=== PATIENT | male | born 1975 | race African-American/Black ===

== ENCOUNTER → 2024-05-06 | Emergency (ER) | payer OTHER ==
[~2024-05-06] VITALS: Ht 180.3 cm; Wt 72.7 kg
[~2024-05-06] MED LIST: IOHEXOL 350 MG/ML 100 ML VIAL ONE; SODIUM CHLORIDE 0.9% 100 ML ONE; VARE1TAB25 PO
[2024-05-06 08:18] VITALS: TEMP 98.6
[2024-05-06 08:46] LABS: BASOPHILS % (AUTO) 0.2 % (0.0-2.0); EOSINOPHILS % (AUTO) 0.1 % (1.0-6.0); HEMATOCRIT 49.8 % (41-53); HEMOGLOBIN 16.5 g/dL (13.5-17.5); LYMPHOCYTES # (AUTO) 1.3 K/uL (1.0-4.8); LYMPHOCYTES % (AUTO) 11.5 % (22.0-44.0); MEAN CORPUSCULAR HEMOGLOBIN 31.3 pg (26.0-34.0); MEAN CORPUSCULAR HGB CONC 33.2 G/dL (31.0-37.0); MEAN CORPUSCULAR VOLUME 94 fL (80-100); MONOCYTES # (AUTO) 0.7 K/uL (0.1-1.0); MONOCYTES % (AUTO) 5.7 % (2.0-9.0); NEUTROPHILS # (AUTO) 9.7 K/uL (1.8-7.7); NEUTROPHILS % (AUTO) 82.5 % (40.0-70.0); PLATELET COUNT (AUTO) 271 K/uL (150-450); RED BLOOD CELL COUNT(AUTO) 5.28 MIL/uL (4.50-5.90); RED CELL DISTRIBUTION WIDTH 13.5 % (11.5-14.5); WHITE BLOOD COUNT (AUTO) 11.7 K/uL (4.5-11.0)
[2024-05-06 08:55] LABS: ANION GAP 11 mmol/L (8-16); CALCIUM, TOTAL 9.9 mg/dL (8.8-10.5); CARBON DIOXIDE 28 mmol/L (22-29); CHLORIDE 98 mmol/L (98-107); CREATININE 0.94 mg/dL (0.60-1.30); GLOMERULAR FILTR. RATE CALC > 60 mL/min (>60); GLUCOSE,RANDOM 104 mg/dL (70-110); SODIUM SERUM 137 mmol/L (136-145); UREA NITROGEN, BLOOD 8 mg/dL (7-18)
[2024-05-06 08:56] LABS: LIPASE 75 U/L (16-77)
[2024-05-06 09:43] LABS: APPEARANCE,URINE HAZY (CLEAR); BILIRUBIN,URINE NEGATIVE (NEGATIVE); COLOR,URINE YELLOW (YELLOW); GLUCOSE, URINE (UA) NEGATIVE (NEGATIVE); KETONES,URINE =>150 mg/dL (NEGATIVE); LEUKOCYTE ESTERASE ,URINE MODERATE (NEGATIVE); NITRATE,URINE NEGATIVE (NEGATIVE); OCCULT BLOOD,URINE TRACE (NEGATIVE); PROTEIN,URINE 100-200,SEE CONFIRM mg/dL (NEGATIVE); SPECIFIC GRAVITIY, URINE 1.038 (1.003-1.030)
[2024-05-06] MEDS: ONDANSETRON HCL 4 MG/2 ML VIAL IVP ONE ×2 (09:44→10:40)
[2024-05-06] MEDS: IOHEXOL 9 MG/ML 500 ML BOTTLE PO ONE (09:44)
[2024-05-06] MEDS: SODIUM CHLORIDE 0.9% 2,000 ML IV ONE (09:44)
[2024-05-06 09:53] LABS: BACTERIA,URINE None Seen /HPF (None Seen); RBC,URINE 0-2 /HPF (0-2); SQUAMOUS EPITHELIAL CELL,UR Few /LPF (None Seen); SULFOSALICYLIC ACID,URINE Trace (Negative)
[2024-05-06 10:02] LABS: TROPONIN I-HIGH SENSITIVITY 5 ng/L (<76)
[2024-05-06] MEDS: SODIUM CHLORIDE 0.9% 1,000 ML IV ONE ×2 (12:26→14:18)
[2024-05-06] MEDS: CefTRIAXone 1 GM/DEXTROSE 50 ML IV ONE (12:26)
[2024-05-06] MEDS: POTASSIUM CHL 10 MEQ/WATER 50 ML IV ONE (12:27)
[2024-05-06] MEDS: METOCLOPRAMIDE HCL 5 MG/ML 2 ML VIAL IVP ONE (13:26)
[2024-05-06] MEDS: HYDROmorphone HCL 2 MG/ML SYRINGE IVP ONE (14:57)
[2024-05-06 19:30] VITALS: BP 119/67; PULSE 65; RESP 18
[2024-05-06] MEDS: ONDANSETRON HCL 4 MG TABLET PO ONE (19:34)
== END | disposition still patient (30) ==
LOC: EMS 08:26
DX: E87.6 Hypokalemia (principal); R19.00 Intra-abdominal and pelvic swelling, mass and lump, unspecified site; R82.81 Pyuria; F12.90 Cannabis use, unspecified, uncomplicated; Z87.891 Personal history of nicotine dependence; Z91.040 Latex allergy status
CPT/HCPCS: 99285; 74177; 96365; 96375; 96361; 71045; 80048; 81001; 83690; 84484; 85025; 36415; 87086; 87186; 93005; 96376; Q9967 ×2; J0696; J1170; J2765; J2405; Q0162; J3480; J7030; J7050; 81002

== ENCOUNTER 2024-05-22 20:12 | Emergency (ER) | payer OTHER ==
[~2024-05-22] VITALS: Ht 177.8 cm; Wt 68.1 kg
[~2024-05-22 20:12] MED LIST changes: -IOHEXOL 350 MG/ML 100 ML VIAL ONE; -SODIUM CHLORIDE 0.9% 100 ML ONE
[2024-05-22 20:31] VITALS: TEMP 97.6
[2024-05-22 22:51] LABS: BASOPHILS % (AUTO) 0.5 % (0.0-2.0); EOSINOPHILS % (AUTO) 0.3 % (1.0-6.0); HEMATOCRIT 46.1 % (41-53); HEMOGLOBIN 15.3 g/dL (13.5-17.5); LYMPHOCYTES # (AUTO) 1.7 K/uL (1.0-4.8); LYMPHOCYTES % (AUTO) 15.3 % (22.0-44.0); MEAN CORPUSCULAR HEMOGLOBIN 31.3 pg (26.0-34.0); MEAN CORPUSCULAR HGB CONC 33.2 G/dL (31.0-37.0); MEAN CORPUSCULAR VOLUME 94 fL (80-100); MONOCYTES # (AUTO) 0.7 K/uL (0.1-1.0); MONOCYTES % (AUTO) 5.8 % (2.0-9.0); NEUTROPHILS # (AUTO) 8.8 K/uL (1.8-7.7); NEUTROPHILS % (AUTO) 78.1 % (40.0-70.0); PLATELET COUNT (AUTO) 337 K/uL (150-450); RED CELL DISTRIBUTION WIDTH 13.3 % (11.5-14.5); WHITE BLOOD COUNT (AUTO) 11.2 K/uL (4.5-11.0)
[2024-05-22] MEDS: ONDANSETRON HCL 4 MG/2 ML VIAL IVP ONE (22:58)
[2024-05-22 23:01] LABS: ANION GAP 13 mmol/L (8-16); CARBON DIOXIDE 27 mmol/L (22-29); CHLORIDE 99 mmol/L (98-107); GLOMERULAR FILTR. RATE CALC > 60 mL/min (>60); GLUCOSE,RANDOM 83 mg/dL (70-110); POTASSIUM 3.4 mmol/L (3.5-5.1); SODIUM SERUM 139 mmol/L (136-145); UREA NITROGEN, BLOOD 12 mg/dL (7-18)
[2024-05-22 23:02] LABS: LIPASE 36 U/L (16-77)
[2024-05-22 23:52] LABS: APPEARANCE,URINE CLEAR (CLEAR); BILIRUBIN,URINE NEGATIVE (NEGATIVE); COLOR,URINE YELLOW (YELLOW); GLUCOSE, URINE (UA) NEGATIVE (NEGATIVE); KETONES,URINE =>150 mg/dL (NEGATIVE); LEUKOCYTE ESTERASE ,URINE SMALL (NEGATIVE); NITRATE,URINE NEGATIVE (NEGATIVE); OCCULT BLOOD,URINE NEGATIVE (NEGATIVE); PH,URINE 6.5 (5.0-8.0); PROTEIN,URINE 30-70 mg/dL (NEGATIVE); SPECIFIC GRAVITIY, URINE 1.024 (1.003-1.030)
[2024-05-22] MEDS: KETOROLAC TROMETHAMINE 30 MG/ML VIAL IVP ONE (23:56)
[2024-05-23 00:40] LABS: BACTERIA,URINE Few /HPF (None Seen); RBC,URINE 0-2 /HPF (0-2); SQUAMOUS EPITHELIAL CELL,UR Rare /LPF (None Seen)
[2024-05-23] MEDS ORDERED: OXYC-38 PO (00:46)
[2024-05-23] MEDS ORDERED: ONDA-104 PO (00:46)
[2024-05-23 01:30] VITALS: BP 124/79; PULSE 74; RESP 17
== END 2024-05-23 02:08 | disposition home or self-care (01) ==
LOC: EMS 20:12
DX: R19.00 Intra-abdominal and pelvic swelling, mass and lump, unspecified site (principal); R11.2 Nausea with vomiting, unspecified; F12.90 Cannabis use, unspecified, uncomplicated; Z87.891 Personal history of nicotine dependence
CPT/HCPCS: 99284; 96374; 96375; 80048; 81001; 83690; 85025; 36415; 87086; 87186; J1885; J2405

== ENCOUNTER 2024-08-08 16:42 | Emergency (ER) | payer OTHER ==
[~2024-08-08] VITALS: Ht 175.3 cm; Wt 72.7 kg
[~2024-08-08 16:42] MED LIST changes: +ONDA-104 PO; +OXYC-38 PO
[2024-08-08 16:46] VITALS: TEMP 99.2
[2024-08-08] MEDS ORDERED: IBUP-1554 PO (18:21)
[2024-08-08] MEDS ORDERED: PERCT PO (18:21)
[2024-08-08] MEDS ORDERED: ONDA-104 PO (18:21)
[2024-08-08] MEDS: OxyCODONE HCL/ACETAMINOPHEN 5-325 MG TABLET PO ONE (18:24)
[2024-08-08] MEDS: IBUPROFEN 600 MG TABLET PO ONE (18:24)
[2024-08-08] MEDS: ONDANSETRON 4 MG TABLET PO ONE (18:24)
[2024-08-08 18:27] VITALS: BP 145/72; PULSE 71; RESP 18; O2SAT 99
== END 2024-08-08 18:29 | disposition home or self-care (01) ==
LOC: EMS 16:42
DX: R19.00 Intra-abdominal and pelvic swelling, mass and lump, unspecified site (principal); R11.2 Nausea with vomiting, unspecified; F12.90 Cannabis use, unspecified, uncomplicated; Z91.040 Latex allergy status
CPT/HCPCS: 99284; Q0162